=== PATIENT | female | born 1975 | race Caucasian/White ===

== ENCOUNTER 2017-12-15 13:31 | Day surgery (SDC) | payer BC, MEDICAID ==
[~2017-12-15 13:31] MED LIST: CLINDAMYCIN 600 MG/D5W RTU 600 MG/50 ML RTUPB IV ONE; CLINDAMYCIN 600 MG/D5W RTU 600 MG/50 ML RTUPB IV PRN; DEXAMETHASONE SOD PHOSPHATE INJ 4 MG/1 ML VIAL ONE; KETOROLAC TROMETHAMINE 60 MG/2 ML SDV ONE; ONDANSETRON HCL INJ/PF 4 MG/2 ML SDV ONE
[2017-12-15 14:27] LABS: APPEARANCE,URINE CLEAR; BILIRUBIN,URINE NEGATIVE (NEGATIVE); COLOR,URINE YELLOW; GLUCOSE, URINE NEGATIVE (NEGATIVE); KETONES,URINE NEGATIVE (NEGATIVE); LEUKOCYTE ESTERASE,URINE NEGATIVE (NEGATIVE); NITRITE,URINE NEGATIVE (NEGATIVE); PROTEIN,URINE NEGATIVE (NEGATIVE); URINE SPECIFIC GRAVITY 1.029; UROBILINOGEN,URINE NEGATIVE mg/dL (<2.0)
[2017-12-15 14:32] LABS: HEMATOCRIT 37.1 % (36.0-47.0); MEAN CORPUSCULAR VOLUME 94 fl (80-97); PLATELET COUNT 277 10^3/uL (150-450); RED BLOOD COUNT 3.93 10^6/uL (3.72-5.28); RED CELL DISTRIBUTION WIDTH 12.3 % (11.5-14.0); WHITE BLOOD COUNT 10.7 10^3/uL (4.0-10.5)
[2017-12-15 15:01] LABS: ANION GAP 8 (5-19); BLOOD UREA NITROGEN 12 mg/dL (7-20); CALCIUM 9.2 mg/dL (8.4-10.2); CARBON DIOXIDE 26 mmol/L (22-30); CHLORIDE 104 mmol/L (98-107); GLUCOSE 92 mg/dL (75-110); POTASSIUM 4.1 mmol/L (3.6-5.0); SODIUM 138.3 mmol/L (137-145)
[2017-12-15] MEDS ORDERED: FENTANYL CITRATE INJ/PF 100 MCG/2 ML AMPUL ONE ×2 (15:28→17:29)
[2017-12-15] MEDS ORDERED: MIDAZOLAM 2 MG/2 ML INJ ONE (15:29)
[2017-12-15] MEDS ORDERED: PROPOFOL INJ 200 MG/20 ML VIAL IV ONE (15:30)
[2017-12-15] MEDS ORDERED: ACETAMINOPHEN 1,000 MG/100 ML RTUPB IV ONE (15:30)
[2017-12-15] MEDS ORDERED: BUPIVACAINE HCL 0.5 % INJ/PF 30 ML SDV ONE (15:44)
[2017-12-15] MEDS ORDERED: PROMETHAZINE HCL INJ 25 MG/1 ML VIAL IV PRN ×2 (16:16)
[2017-12-15] MEDS ORDERED: MORPHINE SULFATE 10 MG/ML INJ IV PRN (16:16)
[2017-12-15] MEDS ORDERED: DIPHENHYDRAMINE HCL 50 MG/ML VIAL IV PRN (16:16)
[2017-12-15] MEDS ORDERED: FENTANYL CITRATE INJ/PF 100 MCG/2 ML AMPUL IV PRN ×3 (16:16)
[2017-12-15] MEDS ORDERED: MEPERIDINE HCL/PF INJ 25 MG/1 ML DISP.SYRIN IV PRN (16:16)
--- NOTE | 2017-12-15 18:28 | RADIOLOGY REPORT (SQ) ---
EXAM DESCRIPTION: WRIST RIGHT 3 VIEWS; NO CHG FLUORO COMPLETED DATE/TIME: 12/15/2017 6:04 pm REASON FOR STUDY: ORIF LT WRIST S52.532A COLLES' FRACTURE OF LEFT RADIUS, INIT FOR CLOS FX COMPARISON: None. FLUOROSCOPY TIME: 1 minutes 26 seconds Spot images saved to PACS. TECHNIQUE: Intra-operative images acquired during surgical procedure to evaluate progress. NUMBER OF IMAGES: 5 LIMITATIONS: None. FINDINGS: Fluoroscopy was provided for intraoperative procedure. Please refer to the operative repo rt for further discussion. IMPRESSION: IMAGE(S) OBTAINED DURING PROCEDURE. COMMENT: Quality ID 145: Final reports for procedures using fluoroscopy that document radiation exp osure indices, or exposure time and number of fluorographic images (if radiation exposure indices are not available) Please consult full operative report of the attending physician for description of the procedure. TECHNICAL DOCUMENTATION: JOB ID: [id number] [employer] All Rights Reserved Reading location - IP/workstation name: [email or web address]
--- NOTE | 2017-12-15 18:29 | RADIOLOGY REPORT (SQ) ---
EXAM DESCRIPTION: WRIST RIGHT 3 VIEWS; NO CHG FLUORO COMPLETED DATE/TIME: 12/15/2017 6:04 pm REASON FOR STUDY: ORIF LT WRIST S52.532A COLLES' FRACTURE OF LEFT RADIUS, INIT FOR CLOS FX COMPARISON: None. FLUOROSCOPY TIME: 1 minutes 26 seconds Spot images saved to PACS. TECHNIQUE: Intra-operative images acquired during surgical procedure to evaluate progress. NUMBER OF IMAGES: 5 LIMITATIONS: None. FINDINGS: Fluoroscopy was provided for intraoperative procedure. Please refer to the operative repo rt for further discussion. IMPRESSION: IMAGE(S) OBTAINED DURING PROCEDURE. COMMENT: Quality ID 145: Final reports for procedures using fluoroscopy that document radiation exp osure indices, or exposure time and number of fluorographic images (if radiation exposure indices are not available) Please consult full operative report of the attending physician for description of the procedure. TECHNICAL DOCUMENTATION: JOB ID: [id number] [employer]- All Rights Reserved Reading location - IP/workstation name: [email or web address]
[2017-12-15] MEDS ORDERED: HYDROMORPHONE HCL INJ/PF 2 MG/ML AMPULE IV PRN (18:46)
[2017-12-15] MEDS ORDERED: OXYCODONE-ACETAMINOPHEN 5-325 MG TABLET PO PRN (18:46)
[2017-12-15] MEDS ORDERED: ONDANSETRON HCL INJ/PF 4 MG/2 ML SDV IV PRN (18:46)
--- NOTE | 2017-12-15 18:47 | Discharge Summary ---
Discharge Summary (SDC) - Discharge Final Diagnosis: Left distal radius fracture Date of Surgery: 12/15/17 Discharge Date: 12/15/17 Condition: Good Treatment or Instructions: Schedule Follow Up w/ Dr. Paul Grossman @ [facility] to be seen in 10-14 days or as scheduled [place]: [place]: [place]: May remove dressing on postop day #3, keep incision covered and dry. Ice and elevate May begin finger range of motion attempting to make full fist. Stool softener of choice when on pain medication. Vitamin C 500 mg daily for 50 days postoperatively to decrease nerve pain Prescriptions: Ketorolac Tromethamine [Toradol 10 mg Tablet] 10 mg PO Q8HP PRN #12 tablet PRN Reason: Oxycodone HCl/Acetaminophen [Percocet 7.5-325 mg Tablet] 1 each PO Q6 PRN #25 tablet PRN Reason: Referrals: WALE SCALES MD [Primary Care Provider] - Discharge Diet: As Tolerated Respiratory Treatments at Home: Deep Breathing/Coughing Report the Following to Your Physician Immediately: Yellow Skin, Fever over 101 Degrees, Unusual Bleeding, Redness
--- NOTE | 2017-12-15 18:59 | Operative Report ---
Operative Report DATE OF SURGERY: 12/15/17 PREOPERATIVE DIAGNOSIS: Left extra-articular distal radius fracture POSTOPERATIVE DIAGNOSIS: Same plus palmar cutaneous branch of the median nerve injury OPERATION: ORIF left extra-articular distal radius fracture SURGEON: DIONICIO MOSELEY ANESTHESIA: GA COMPLICATIONS: None ESTIMATED BLOOD LOSS: Minimal PROCEDURE: Indication for above procedure: 42-year-old female who sustained a fall onto her outstretched left wrist. Patient sustained a distal radius fracture confirmed by radiographs at the emergency room. She subsequently followed up at our office in which point closed reduction was attempted which did improve patient's alignment however repeat radiographs demonstrated a radial collapse at that point given patient's age and collapse of the fracture decision was made to proceed with operative intervention. Risks and benefits were explained patient verbalized understanding and consented for the procedure. Procedure In Detail: Patient was seen and evaluated in the preoperative holding area. The LEFT upper extremity was initialized and marked. Patient received 2g of Ancef IV for bacterial prophylaxis. Patient was taken back to the operative room where transferred to the operative table and placed under general anesthesia. Once they were adequately anesthetized and a nonsterile tourniquet was placed on his upper extremity. A surgical team debriefing was performed ensuring all instrumentation was available, the surgical procedure was discussed with possible concerns reviewed. The upper extremity was prepped with chlorhexidine and alcohol and draped in a sterile fashion. A timeout was done identifying correct patient, procedure and extremity everyone in attendance agree with this and verbalized no concerns.The extremity was exsanguinated the tourniquet was inflated to 250 mmHg. A longitudinal skin incision was made via a volar approach of Jordon along the FCR tendon sheath. The FCR tendon sheath was opened and the FCR retracted ulnarly, the palmar cutaneous branch of the median nerve was identified along the floor of the FCR radially. There was evidence of partial fascicular disruption along its radial border. The radial artery was identified and retracted radially. Blunt dissection was performed to the FPL which was carefully sweeped ulnarly. This brought me to the pronator quadratus which was elevated off of the distal radius via sharp dissection with a 15 blade to allow later repair. The brachioradialis was released from the radial styloid. The fracture was then identified and a reduction maneuver was performed utilizing a [place] elevator. Acceptable reduction was then obtained and a Acumed 3 hole volar distal radius plate was placed into position and fixated with a K wire distally x2. AP and lateral radiographs were then obtained demonstrating appropriate placement of the plate. Using a reduction tenaculum I was able to bring the plate down to bone distally. Drilling the near cortex and to but not thru the far cortex a locking screw was then placed in the most ulnar hole. Three additional screws were placed distally. Two additional locking screws were placed into the radial styloid . AP and lateral radius were then done confirming appropriate placement of plate with no evidence of penetration intra- articular or within the DRUJ. I then turned my attention to the proximal screws. In order to reduce the coronal translation a lamina director of cardiology was placed between the radius and ulna which anatomically reduced the DRUJ. I then drilled bicortically bringing the plate down to bone with a cortex screw. The remaining 2 holes proximally were drilled bicortically placing the appropriate size cortex in the proximal most hole and a locking screw in the distal shaft hole. AP and lateral radiographs were done confirming appropriate placement of the plate and reduction of the fracture there was religion of radial height, radial inclination and volar tilt. No evidence of dorsal screw prominence or intra-articular penetration of the DRUJ or radiocarpal joint. The wound was copiously irrigated with normal saline. There was no evidence of DRUJ instability on examination, Negative Gilliam's test, No crepitus with range of motion at the radiocarpal joint or DRUJ. I then closed the pronator quadratus with interrupted 3-0 Monocryl suture successfully covering the plate distally. Tourniquet was deflated any peripheral bleeding was controlled with bipolar cautery. Given the partial fascicular disruption of the palmar cutaneous branch of the median nerve this was then protected with a Axogen 3 mm x 15 mm nerve tube which was transitioned into a wrap. This was secured with 8-0 nylon suture under loupe magnification. The wound was irrigated once again with normal saline. Subcutaneous tissues were closed with interrupted 4-0 Monocryl suture. The skin was closed with a running subcuticular 4-0 Monocryl suture which was reinforced with Dermabond and Steri-Strips. 30 mL of 0.5% Marcaine were injected for postoperative pain control. The tourniquet was then deflated. Was dressed with sterile 4 x 4's and patient was placed in a well-padded volar splint with bias wrap. Sponge counts, instrument counts and needle counts were correct. There was no intraoperative complications patient tolerated procedure well stable to PACU. Postoperative plan: Patient will be switched to a removal brace at her first postoperative followup visit and begin range of motion. Patient is encouraged to start vitamin C 500 mg daily for 51 days. Will obtain radiographs at followup of the wrist.
[2017-12-15] MEDS ORDERED: LORAZEPAM INJ 2 MG/1 ML VIAL ONE (19:01)
[2017-12-15] MEDS: HYDROMORPHONE HCL INJ/PF 2 MG/ML AMPULE ONE ×2 (19:03→19:25)
[2017-12-16 08:04] VITALS: BP 103/64
== END 2017-12-15 22:54 | disposition home or self-care (01) ==
LOC: OROUT 13:31 → 4N 20:24 → OROUT 22:54
PROVIDERS: ATTEND Orthopaedic Surgery
DX: S52.552A Other extraarticular fracture of lower end of left radius, initial encounter for closed fracture (principal); S64.12XA Injury of median nerve at wrist and hand level of left arm, initial encounter; W01.0XXA Fall on same level from slipping, tripping and stumbling without subsequent striking against object, initial encounter; M25.532 Pain in left wrist; F17.210 Nicotine dependence, cigarettes, uncomplicated; D64.9 Anemia, unspecified; Z88.0 Allergy status to penicillin; Z87.892 Personal history of anaphylaxis
CPT/HCPCS: 36415; 85027; 81025; 80048; 81001; 73110; 25607; C1713 ×5; C1769; J2250; J3490; J1100; J1885; J3010; J1170; J2060; J2405; J2704; J0131; 01830

== ENCOUNTER 2018-04-12 07:45 | Day surgery (SDC) | payer BC ==
--- NOTE | 2018-04-05 11:55 | RADIOLOGY REPORT (SQ) ---
EXAM DESCRIPTION: CHEST PA/LATERAL COMPLETED DATE/TIME: 04/05/2018 11:31 am REASON FOR STUDY: PRE-OP COMPARISON: None. EXAM PARAMETERS: NUMBER OF VIEWS: two views TECHNIQUE: Digital Frontal and Lateral radiographic views of the chest acquired. RADIATION DOSE: NA LIMITATIONS: none FINDINGS: LUNGS AND PLEURA: No opacities, masses or pneumothorax. No pleural effusion. MEDIASTINUM AND HILAR STRUCTURES: No masses or contour abnormalities. HEART AND VASCULAR STRUCTURES: Heart normal size. No evidence for failure. BONES: No acute findings. HARDWARE: None in the chest. OTHER: No other significant finding. IMPRESSION: NO SIGNIFICANT RADIOGRAPHIC FINDING IN THE CHEST. TECHNICAL DOCUMENTATION: JOB ID: [id number] [employer]- All Rights Reserved Reading location - IP/workstation name: [email or web address]
[2018-04-05 12:25] LABS: APPEARANCE,URINE CLEAR; BILIRUBIN,URINE NEGATIVE (NEGATIVE); COLOR,URINE STRAW; GLUCOSE, URINE NEGATIVE (NEGATIVE); KETONES,URINE NEGATIVE (NEGATIVE); LEUKOCYTE ESTERASE,URINE NEGATIVE (NEGATIVE); NITRITE,URINE NEGATIVE (NEGATIVE); PROTEIN,URINE NEGATIVE (NEGATIVE); URINE SPECIFIC GRAVITY 1.005; UROBILINOGEN,URINE NEGATIVE mg/dL (<2.0)
[2018-04-05 12:26] LABS: HEMATOCRIT 41.1 % (36.0-47.0); HEMOGLOBIN 14.1 g/dL (12.0-15.5); MEAN CORPUSCULAR HEMOGLOBIN 32.8 pg (27.0-33.4); MEAN CORPUSCULAR HGB CONC 34.4 g/dL (32.0-36.0); MEAN CORPUSCULAR VOLUME 96 fl (80-97); PLATELET COUNT 284 10^3/uL (150-450); RED BLOOD COUNT 4.31 10^6/uL (3.72-5.28); RED CELL DISTRIBUTION WIDTH 12.1 % (11.5-14.0); WHITE BLOOD COUNT 11.7 10^3/uL (4.0-10.5)
[2018-04-05 12:55] LABS: ANION GAP 9 (5-19); BLOOD UREA NITROGEN 6 mg/dL (7-20); CALCIUM 9.2 mg/dL (8.4-10.2); CARBON DIOXIDE 27 mmol/L (22-30); CHLORIDE 104 mmol/L (98-107); GLUCOSE 99 mg/dL (75-110); SODIUM 139.7 mmol/L (137-145)
--- NOTE | 2018-04-05 19:22 | EKG REPORT ---
SEVERITY:- BORDERLINE ECG - SINUS RHYTHM SHORT MO INTERVAL, ACCELERATED AV CONDUCTION MINIMAL ST DEPRESSION, LATERAL LEADS : Confirmed by: Allyn Davis 05-Apr-2018 19:21:56
[~2018-04-12 07:45] MED LIST changes: +ACETAMINOPHEN 1,000 MG/100 ML RTUPB IV ONE; -CLINDAMYCIN 600 MG/D5W RTU 600 MG/50 ML RTUPB IV ONE; +FENTANYL CITRATE INJ/PF 100 MCG/2 ML AMPUL ONE; -KETOROLAC TROMETHAMINE 60 MG/2 ML SDV ONE; +LACTATED RINGERS 1000 ML IV PRN; +LIDOCAINE 0.5% INJ-PF (5 MG/ML) 50 ML SDV SUBCUT PRN; +LIDOCAINE 2% INJ-PF (20 MG/ML) 10 ML AMPUL ONE; +MIDAZOLAM 2 MG/2 ML INJ ONE; +PROPOFOL INJ 200 MG/20 ML VIAL IV ONE
[2018-04-12] MEDS ORDERED: CLINDAMYCIN 600 MG/D5W RTU 600 MG/50 ML RTUPB IV ONE (08:22)
[2018-04-12] MEDS ORDERED: ALBUTEROL SULFATE 0.083% NEB 2.5 MG/3 ML AMPUL NEB ONE (08:37)
[2018-04-12] MEDS ORDERED: LIDOCAINE 1% INJ-PF (10 MG/ML) 30 ML SDV ONE (09:55)
[2018-04-12] MEDS ORDERED: BUPIVACAINE HCL 0.5 % INJ/PF 30 ML SDV ONE (09:55)
[2018-04-12] MEDS ORDERED: ONDANSETRON HCL INJ/PF 4 MG/2 ML SDV IV PRN (10:29)
[2018-04-12] MEDS ORDERED: PROMETHAZINE HCL INJ 25 MG/1 ML VIAL IV PRN ×2 (10:29)
[2018-04-12] MEDS ORDERED: MEPERIDINE HCL/PF INJ 25 MG/1 ML DISP.SYRIN IV PRN (10:29)
[2018-04-12] MEDS ORDERED: FENTANYL CITRATE INJ/PF 100 MCG/2 ML AMPUL IV PRN ×3 (10:29)
[2018-04-12] MEDS ORDERED: DIPHENHYDRAMINE HCL 50 MG/ML VIAL IV PRN (10:29)
[2018-04-12] MEDS ORDERED: MORPHINE SULFATE 10 MG/ML INJ IV PRN (10:29)
[2018-04-12] MEDS: FENTANYL CITRATE INJ/PF 100 MCG/2 ML AMPUL ONE ×2 (11:36→11:41)
--- NOTE | 2018-04-12 11:39 | Operative Report ---
Operative Report DATE OF SURGERY: 04/12/18 PREOPERATIVE DIAGNOSIS: Left wrist DRUJ instability POSTOPERATIVE DIAGNOSIS: Same OPERATION: Left wrist open TFCC repair with percutaneous pinning DRUJ SURGEON: DIONICIO MOSELEY ANESTHESIA: GA COMPLICATIONS: None ESTIMATED BLOOD LOSS: Minimal PROCEDURE: Indication for above procedure: 42-year-old female who sustained a distal radius fracture. She underwent open reduction internal fixation. Postoperative she had been showing improvement but continued to have pain with supination and on examination instability of the DRUJ. Attempted conservative measures including bracing and occupational therapy without resolution. At that point decision was made to proceed with operative intervention. Risks and benefits were explained patient verbalized understanding consented for the procedure. Procedure In Detail: Patient was seen and evaluated in the preoperative holding area. The upper extremity was initialized and marked. Patient received 2g of Ancef IV for bacterial prophylaxis. Patient was taken back to the operative room where transferred to the operative table and placed under general anesthesia. Once they were adequately anesthetized a nonsterile tourniquet was placed on the upper extremity. A surgical team debriefing was performed ensuring all instrumentation was available, the surgical procedure was discussed with possible concerns reviewed. The upper extremity was prepped with chlorhexidine and alcohol and draped in a sterile fashion. A timeout was done identifying co rrect patient, procedure and extremity everyone in attendance agree with this and verbalized no concerns. The extremity was exsanguinated the tourniquet was inflated to 250 mmHg. Examination demonstrated volar and dorsal DRUJ instability. Longitudinal skin incision 5 cm was made centered over the fifth dorsal compartment. Branch of the dorsal ulnar sensory nerve were identified and retracted. The fifth dorsal compartment was then opened and retracted. Longitudinal dissection was performed from proximal to distal a 22-gauge needle was utilized to confirm placement of the TFCC. The ECU sub-sheath and tendon were elevated. A L shaped incision was then made preserving the dorsal radial ulnar ligaments. There was evidence of avulsion of the TFCC from the ulnar fovea under direct visuali zation. With the assistance of C-arm fluoroscopy a Arthrex mini suture tack anchor was placed at the insertion of the ligamentum subcruentum just along the base of the ulnar styloid. A separate longitudinal skin incision was made distal to the TFCC. A horizontal mattress with #1 FiberWire was then placed from proximal to distal securing the TFCC back to its origin. At completion of repair there was notable improved stability both volar and dorsally with stress. Wound was then copiously irrigated with normal saline. Remaining TFCC was further reapproximated with 2- 0 FiberWire suture. The retinaculum was then reapproximated with 3-0 Vicryl suture. Leaving the EDM outside the sheath any peripheral veins were coagulated with bipolar cautery. To provide further stability a 0.062 K wire was placed with the wrist in neutral position from radial to ulnar on oscillate. C-arm fluoroscopy confirmed appropriate placement. K wire was then cut leaving a small portion outside the skin and Jurgan's ball placed. Skin incision was closed with running subcuticular 4-0 Monocryl reinforced with Dermabond and Steri-Strips. [place] was placed around the DRUJ pin. 30 cc of 0.5% bupivacaine without epinephrine was injected for postoperative pain control. Sponge counts, instrument counts, needle counts were correct. Patient was then awoken from anesthesia. Transferred from the operating room table to the operating room stretcher. There was no intraoperative complications patient tolerated procedure well stable to PACU. Postoperative plan: Patient will be set up for occupational therapy to be molded with a [place] splint. Will begin wrist flexion/extension 4 weeks postoperatively. Plan will be for trans-DRUJ K wire to be removed at 4 weeks postoperatively patient will slowly begin range of motion from wrist in neutral to wrist supination until 6 weeks and then begin wrist pronation.
[2018-04-12] MEDS: HYDROMORPHONE HCL INJ/PF 2 MG/ML AMPULE ONE ×2 (11:55→12:15)
[2018-04-12] MEDS ORDERED: KETOROLAC TROMETHAMINE INJ/PF 30 MG/1 ML SDV ONE (11:55)
[2018-04-12] MEDS ORDERED: FENTANYL CITRATE INJ/PF 100 MCG/2 ML AMPUL ONE (12:00)
[2018-04-12] MEDS ORDERED: OXYCODONE-ACETAMINOPHEN 5-325 MG TABLET PO PRN (12:41)
[2018-04-12] MEDS ORDERED: OXYCODONE-ACETAMINOPHEN 5-325 MG TABLET ONE (12:52)
--- NOTE | 2018-04-12 14:20 | RADIOLOGY REPORT (SQ) ---
EXAM DESCRIPTION: NO CHG FLUORO; WRIST LEFT 2 VIEWS COMPLETED DATE/TIME: 04/12/2018 1:32 pm REASON FOR STUDY: PORT; LEFT WRIST PERC PINNING ASST WITH FLUORO IN OR S63.502S UNSPECIFIED SPRAIN OF LEFT WRIST, SEQUELA S52.502A UNSP FRACTURE OF THE LOWER END OF LEFT RADIUS, INIT COMPARISON: None. FLUOROSCOPY TIME: 14 seconds 2 images saved to PACS. TECHNIQUE: Intra-operative images acquired during surgical procedure to evaluate progress. NUMBER OF IMAGES: 2 LIMITATIONS: None. FINDINGS: Limited fluoroscopic images obtained to evaluate progress of distal radial fracture plate and screw fixation. Please see operative report for detailed description of procedure. IMPRESSION: IMAGE(S) OBTAINED DURING PROCEDURE. COMMENT: Quality ID 145: Final reports for procedures using fluoroscopy that document radiation exp osure indices, or exposure time and number of fluorographic images (if radiation exposure indices are not available) Please consult full operative report of the attending physician for description of the procedure. TECHNICAL DOCUMENTATION: JOB ID: [id number] [employer]- All Rights Reserved Reading location - IP/workstation name: [email or web address]
--- NOTE | 2018-04-12 14:20 | RADIOLOGY REPORT (SQ) ---
EXAM DESCRIPTION: NO CHG FLUORO; WRIST LEFT 2 VIEWS COMPLETED DATE/TIME: 04/12/2018 1:32 pm REASON FOR STUDY: PORT; LEFT WRIST PERC PINNING ASST WITH FLUORO IN OR S63.502S UNSPECIFIED SPRAIN OF LEFT WRIST, SEQUELA S52.502A UNSP FRACTURE OF THE LOWER END OF LEFT RADIUS, INIT COMPARISON: None. FLUOROSCOPY TIME: 14 seconds 2 images saved to PACS. TECHNIQUE: Intra-operative images acquired during surgical procedure to evaluate progress. NUMBER OF IMAGES: 2 LIMITATIONS: None. FINDINGS: Limited fluoroscopic images obtained to evaluate progress of distal radial fracture plate and screw fixation. Please see operative report for detailed description of procedure. IMPRESSION: IMAGE(S) OBTAINED DURING PROCEDURE. COMMENT: Quality ID 145: Final reports for procedures using fluoroscopy that document radiation exp osure indices, or exposure time and number of fluorographic images (if radiation exposure indices are not available) Please consult full operative report of the attending physician for description of the procedure. TECHNICAL DOCUMENTATION: JOB ID: [id number] [employer]- All Rights Reserved Reading location - IP/workstation name: [email or web address]
[2018-04-12 14:47] VITALS: BP 117/78
== END 2018-04-12 14:20 | disposition home or self-care (01) ==
LOC: OROUT 07:45
PROVIDERS: ATTEND Orthopaedic Surgery
DX: M25.332 Other instability, left wrist (principal); S63.502S Unspecified sprain of left wrist, sequela; X58.XXXS Exposure to other specified factors, sequela; S52.502A Unspecified fracture of the lower end of left radius, initial encounter for closed fracture; X58.XXXA Exposure to other specified factors, initial encounter; M25.532 Pain in left wrist; F17.210 Nicotine dependence, cigarettes, uncomplicated; Z88.0 Allergy status to penicillin; Z88.1 Allergy status to other antibiotic agents; D64.9 Anemia, unspecified
CPT/HCPCS: 93005; 36415; 85027; 81025; 80048; 81001; 71046; 73100; 93010; 25107; C1713 ×3; J2250; J1100; J3010; J3490 ×2; J1885; J1170; J2405; J2704; J0131; 01830

== ENCOUNTER 2019-11-09 05:29 | Day surgery (SDC) | payer BC ==
[2019-11-06 12:56] LABS: APPEARANCE,URINE CLEAR; BILIRUBIN,URINE NEGATIVE (NEGATIVE); COLOR,URINE YELLOW; GLUCOSE, URINE NEGATIVE (NEGATIVE); KETONES,URINE NEGATIVE (NEGATIVE); LEUKOCYTE ESTERASE,URINE NEGATIVE (NEGATIVE); NITRITE,URINE NEGATIVE (NEGATIVE); PROTEIN,URINE NEGATIVE (NEGATIVE); UROBILINOGEN,URINE NEGATIVE mg/dL (<2.0)
[2019-11-06 14:05] LABS: HEMATOCRIT 41.5 % (36.0-47.0); HEMOGLOBIN 14.6 g/dL (12.0-15.5); MEAN CORPUSCULAR HEMOGLOBIN 33.5 pg (27.0-33.4); MEAN CORPUSCULAR HGB CONC 35.1 g/dL (32.0-36.0); MEAN CORPUSCULAR VOLUME 95 fl (80-97); PLATELET COUNT 224 10^3/uL (150-450); RED BLOOD COUNT 4.35 10^6/uL (3.72-5.28); RED CELL DISTRIBUTION WIDTH 12.3 % (11.5-14.0); WHITE BLOOD COUNT 7.6 10^3/uL (4.0-10.5)
[~2019-11-09 05:29] MED LIST changes: -ACETAMINOPHEN 1,000 MG/100 ML RTUPB IV ONE; +CEFAZOLIN 2 GM/D5W RTU 0 GM/0 ML RTUPB IV ONE; +CEFAZOLIN SODIUM 2 GM in DEXTROSE 5%-WATER 100 ML IV PRN; -CLINDAMYCIN 600 MG/D5W RTU 600 MG/50 ML RTUPB IV PRN; -DEXAMETHASONE SOD PHOSPHATE INJ 4 MG/1 ML VIAL ONE; -FENTANYL CITRATE INJ/PF 100 MCG/2 ML AMPUL ONE; -LIDOCAINE 2% INJ-PF (20 MG/ML) 10 ML AMPUL ONE; -MIDAZOLAM 2 MG/2 ML INJ ONE; -ONDANSETRON HCL INJ/PF 4 MG/2 ML SDV ONE; -PROPOFOL INJ 200 MG/20 ML VIAL IV ONE
[2019-11-09] MEDS ORDERED: KETOROLAC TROMETHAMINE 60 MG/2 ML SDV ONE (07:00)
[2019-11-09] MEDS ORDERED: MIDAZOLAM 2 MG/2 ML INJ ONE (07:01)
[2019-11-09] MEDS ORDERED: DEXAMETHASONE SOD PHOSPHATE INJ 4 MG/1 ML VIAL ONE (07:01)
[2019-11-09] MEDS ORDERED: FENTANYL CITRATE INJ/PF 100 MCG/2 ML AMPUL ONE (07:01)
[2019-11-09] MEDS ORDERED: ONDANSETRON HCL INJ/PF 4 MG/2 ML SDV ONE (07:01)
[2019-11-09] MEDS ORDERED: PROPOFOL INJ 200 MG/20 ML VIAL IV ONE (07:01)
[2019-11-09] MEDS ORDERED: LIDOCAINE 2%/EPINEPHRINE INJ 20 ML VIAL ONE (07:14)
[2019-11-09] MEDS ORDERED: FENTANYL CITRATE INJ/PF 100 MCG/2 ML AMPUL IV PRN ×3 (07:51)
[2019-11-09] MEDS ORDERED: MEPERIDINE HCL/PF INJ 25 MG/1 ML DISP.SYRIN IV PRN (07:51)
[2019-11-09] MEDS ORDERED: MORPHINE SULFATE 10 MG/ML INJ IV PRN (07:51)
[2019-11-09] MEDS ORDERED: DIPHENHYDRAMINE HCL 50 MG/ML VIAL IV PRN (07:51)
[2019-11-09] MEDS ORDERED: PROMETHAZINE HCL INJ 25 MG/1 ML VIAL IV PRN (07:51)
[2019-11-09] MEDS ORDERED: AZITHROMYCIN 500 MG in DEXTROSE 5%-WATER 250 ML IV ONE (08:00)
[2019-11-09] MEDS ORDERED: BUPIVACAINE INJ/PF LIPOSOME/PF 266 MG/20 ML SDV ONE (08:14)
--- NOTE | 2019-11-09 08:25 | Operative Report ---
Nonrecallable Operative Report DATE OF SURGERY: 11/09/19 PREOPERATIVE DIAGNOSIS: Anal vaginal warts hemorrhoids and anal skin tags POSTOPERATIVE DIAGNOSIS: Anovaginal warts hemorrhoids and anal skin tags OPERATION: Excision of anal skin tag and hemorrhoidal banding SURGEON: DIONICIO MENDES 1ST MARKETING ANALYST: OLENA YOUNG ANESTHESIA: GA TISSUE REMOVED OR ALTERED: Anal skin tag COMPLICATIONS: None ESTIMATED BLOOD LOSS: 5 cc INTRAOPERATIVE FINDINGS: See note PROCEDURE: Procedure note this procedure was done in conjunction with Dr. Choe from [employer] who was removing anal condylomata and I completed that portion of procedure when I began mine. Patient was already up in lithotomy had already been prepped and draped. She had an anal skin tag at the 5 o'clock position that was approximately 2 cm in length this was grasped with an Allis clamp and a elliptical incision was made at the base of it at the anal Derm extended out to the tip of the skin tag it was then excised with Bovie cautery and the mucosa was closed with a running 2-0 Vicryl suture. In addition to this the anoscope was then passed into the rectum and examination of the rectum revealed a fairly large hemorrhoid at the 2 o'clock position and a second hemorrhoid at the 11 o'clock position a h emorrhoidal band was placed at the base of these hemorrhoids x2. The scope was removed hemostasis was obtained with pressure once hemostasis was obtained the anal rectal ring was anesthetized with Exparel solution 20 cc were used. This completed the procedure the patient was then taken out of lithotomy transferred recovery in stable condition HADLEY Martino was present for the entire procedure for help with wound retraction wound closure. Dr. Choe will dictate her portion of the case which was the removal of the anorectal condylomata.
--- NOTE | 2019-11-09 08:58 | Operative Report ---
Operative Report DATE OF SURGERY: 11/09/19 PREOPERATIVE DIAGNOSIS: condyloma of vulva and anus POSTOPERATIVE DIAGNOSIS: same OPERATION: excision of condyloma and hemorrhoid banding SURGEON: WALE SCALES 1ST AGENCY MANAGER: DIONICIO MENDES 2ND Needle Loom Operator Helper: OLENA YOUNG ANESTHESIA: LMAC TISSUE REMOVED OR ALTERED: multiple condyloma and anal skin tag COMPLICATIONS: none ESTIMATED BLOOD LOSS: 20cc INTRAOPERATIVE FINDINGS: multiple condyloma of vulva and perineum with large anal skin tag covered in condyloma PROCEDURE: Patient was taken to the operating room prepared and draped in normal sterile fashion in the dorsolithotomy position and in candycane stirrups. The condyloma were identified and each injected with lidocaine with epi. The vulvar condyloma were removed using suction Bovie. The perineal condyloma were removed using elliptical incision with a 15 blade and undermining the subcutaneous tissue until the condyloma was freed. 2 of the sites were hemostatic heme coagulated with silver nitrate. Sites were stitched with 4-0 Vicryl. The condyloma on the perineum were undermined with the 15 blade and left without stitch for Dr. Mendes to complete his portion of the case. See his dictation for details. Case was then concluded patient was taken to recovery room in stable condition. Needle counts were correct x2
[2019-11-09] MEDS ORDERED: IBUPROFEN 800 MG TABLET PO PRN (08:59)
[2019-11-09] MEDS ORDERED: RINGERS SOLUTION,LACTATED 1,000 ML IV PRN (08:59)
[2019-11-09] MEDS ORDERED: KETOROLAC TROMETHAMINE INJ/PF 30 MG/1 ML SDV IV PRN (08:59)
[2019-11-09] MEDS ORDERED: OXYCODONE-ACETAMINOPHEN 5-325 MG TABLET PO PRN ×2 (08:59)
--- NOTE | 2019-11-09 09:05 | Discharge Summary ---
Discharge Summary (SDC) - Discharge Final Diagnosis: vulvar anal condyloma, anal skin tag, hemorrhoid Date of Surgery: 11/09/19 Discharge Date: 11/09/19 Condition: Stable Forms: ASU Anesthesia D/C Instruction, Discharge POC-Surgical Service Prescriptions: Oxycodone HCl/Acetaminophen [Percocet 5-325 mg Tablet] 1 tab PO Q4HP PRN #14 tablet PRN Reason: Docusate Sodium [Colace 100 mg Capsule] 100 mg PO BID #60 capsule Ibuprofen [Motrin 800 mg Tablet] 800 mg PO NOW PRN #60 tablet PRN Reason: Referrals: WALE SCALES MD [Primary Care Provider] - DIONICIO MENDES MD [ACTIVE STAFF] - 11/22/19 8:00 am Discharge Diet: As Tolerated Respiratory Treatments at Home: Deep Breathing/Coughing Discharge Activity: Balance Activity w/Rest, No Driving, Pelvic Rest, No tub bath Home Care Assistance: None Needed Report the Following to Your Physician Immediately: Shortness of Breath, Fever over 101 Degrees
[2019-11-09 11:12] VITALS: BP 90/59
== END 2019-11-09 10:37 | disposition home or self-care (01) ==
LOC: OROUT 05:29
PROVIDERS: ATTEND Obstetrics & Gynecology
DX: A63.0 Anogenital (venereal) warts (principal); K64.4 Residual hemorrhoidal skin tags; Z03.818 Encounter for observation for suspected exposure to other biological agents ruled out; F17.210 Nicotine dependence, cigarettes, uncomplicated; Z88.2 Allergy status to sulfonamides; Z88.1 Allergy status to other antibiotic agents; Z88.3 Allergy status to other anti-infective agents
CPT/HCPCS: 36415; 85027; 87635; 81025; 81001; 00902; 46221; J2250; J1100; J1885; J3010; J3490; J2405; J7060; J2704; J0456; C9290; C9803; 902; J0690